=== PATIENT | male | born 1985 | race Caucasian/White ===

== ENCOUNTER → 2017-09-04 | Outpatient (CLI) | payer OTHER ==
[~2017-09-04] MED LIST: AZIT250 PO; Augmentin 875-1 EACH PO; CEPH500 PO; CRUTCH4 USE; DIPATR PO; DOXY100 PO; FISH1000; GINKO BILOBA; HYDACE5 PO; HYDGUAL120 PO; IBUP200; IBUP400 PO; IBUP800 PO; MULVITA; NAPR500 PO; NAPR550 PO; OXYASA5T PO; OXYC15ER PO; PANT40 PO; PENVK250 PO; PENVK500 PO; PROACE100 PO; RXHYDACE PO; RXNAPNA550 PO
== END | disposition home or self-care (01) ==
LOC: LAB SHORT 17:14 → LAB EV 17:14
DX: L08.9 Local infection of the skin and subcutaneous tissue, unspecified (principal)
CPT/HCPCS: 87070; 87075; 87205

== ENCOUNTER 2019-07-24 16:56 | Emergency (ER) | payer OTHER ==
[~2019-07-24] VITALS: Ht 172.7 cm; Wt 72.6 kg
[2019-07-24] MEDS ORDERED: PENVK500 PO ×2 (17:29→17:38)
== END 2019-07-24 18:07 | disposition home or self-care (01) ==
LOC: ER 16:56
DX: K04.7 Periapical abscess without sinus (principal); F17.210 Nicotine dependence, cigarettes, uncomplicated
CPT/HCPCS: 99282

== ENCOUNTER 2020-01-08 23:07 | Emergency (ER) | payer OTHER ==
[~2020-01-08] VITALS: Ht 172.7 cm; Wt 70.8 kg
[2020-01-09] MEDS ORDERED: IBUP800 PO (08:20)
[2020-01-09] MEDS ORDERED: Amoxicillin500 MG PO (08:20)
== END 2020-01-09 03:30 | disposition left against medical advice (07) ==
LOC: ER 23:07
DX: Z53.21 Procedure and treatment not carried out due to patient leaving prior to being seen by health care provider (principal)

== ENCOUNTER 2020-01-09 07:08 | Emergency (ER) | payer OTHER ==
[~2020-01-09] VITALS: Ht 172.7 cm; Wt 70.8 kg
[2020-01-09] MEDS ORDERED: Amoxicillin500 MG PO (08:20)
[2020-01-09] MEDS ORDERED: IBUP800 PO (08:20)
== END 2020-01-09 08:28 | disposition home or self-care (01) ==
LOC: ER 07:08
DX: K02.9 Dental caries, unspecified (principal); F17.210 Nicotine dependence, cigarettes, uncomplicated
CPT/HCPCS: 99282

== ENCOUNTER 2020-06-13 08:02 | Inpatient (IN) | payer OTHER ==
[~2020-06-13] VITALS: Ht 175.3 cm; Wt 78.5 kg
[~2020-06-13 08:02] MED LIST changes: +Amoxicillin500 MG PO
[2020-06-13 11:23] LABS: Body Fluid Crystals NEG (NEGATIVE)
[2020-06-13 12:09] LABS: WBC Count, Synovial Fluid 25035 /mm3 (0-180)
[2020-06-13 12:33] LABS: RBC Count, Synovial Fluid 19 /mm3 (0-0)
[2020-06-13 12:37] LABS: Appearance, Synovial Fluid Cloudy (Clear); Color, Synovial Fluid Pale Yellow (None-P Yel); Lymphs, Synovial Fluid 1 % (0-15); Monocytes/Macrophages, Synovia 15 % (0-65); Neutrophils, Synovial Fluid 84 % (0-24)
[2020-06-13 13:54] LABS: BASOPHILS ABSOLUTE AUTO 0.04 K/mm3 (0.00-0.23); BASOPHILS PERCENT AUTO 0 % (0-2); EOSINOPHILS ABSOLUTE AUTO 0.12 K/mm3 (0.00-0.68); EOSINOPHILS PERCENT AUTO 1 % (0-6); Hematocrit 43.7 % (37.0-53.0); Hemoglobin 14.6 g/dL (13.5-17.5); IMMATURE GRAN ABSOLUTE AUTO 0.05 K/mm3 (0.00-0.10); IMMATURE GRAN PERCENT AUTO 0 % (0-1); LYMPHOCYTES PERCENT AUTO 20 % (21-46); MONOCYTES ABSOLUTE AUTO 1.04 K/mm3 (0.16-1.47); MONOCYTES PERCENT AUTO 7 % (4-13); Mean Corpuscular HGB 30.6 pg (26.0-34.0); Mean Corpuscular HGB Conc 33.4 g/dL (31.5-36.5); Mean Corpuscular Volume 92 fL (80-100); Mean Platelet Volume 10.8 fL (9.1-12.4); NEUTROPHILS ABSOLUTE AUTO 10.01 K/mm3 (1.96-9.15); NEUTROPHILS PERCENT AUTO 71 % (41-73); Platelet Count 294 K/mm3 (150-400); RDW Coefficient Variation 13.9 % (11.7-14.2); RDW Standard Deviation 47.6 fL (35.1-46.3); Red Blood Cell Count 4.77 M/mm3 (4.30-5.90); White Blood Cell Count 14.06 K/mm3 (4.00-11.30)
[2020-06-13 14:05] LABS: Alanine Aminotransfer (ALT/SGP 27 U/L (12-78); Albumin, Blood 3.8 g/dL (3.4-5.0); Albumin/Globulin Ratio 1.1 (0.8-1.8); Alk Phos 60 U/L (50-136); Anion Gap 6 mmol/L (6-16); Aspartate Aminotrans (AST/SGOT 16 U/L (12-37); Bilirubin, Total 0.4 mg/dL (0.1-1.0); Blood Urea Nitrogen 9 mg/dL (8-24); CO2, Blood 29 mmol/L (21-32); Calcium, Blood 8.8 mg/dL (8.5-10.1); Chloride, Blood 106 mmol/L (98-108); Creatinine, Blood 0.82 mg/dL (0.60-1.20); Globulin, Blood 3.4 g/dL (2.2-4.0); Glomerular Filtration Rate >60 (60-); Glucose, Blood 108 mg/dL (70-99); Potassium, Blood 3.7 mmol/L (3.5-5.5); Sodium, Blood 141 mmol/L (136-145); Total Protein, Blood 7.2 g/dL (6.4-8.2)
[2020-06-13 14:29] LABS: Influenza A, PCR NEGATIVE (NEGATIVE); Influenza B, PCR NEGATIVE (NEGATIVE); Resp Syncytial Virus, PCR NEGATIVE (NEGATIVE); SARS-Cov-2 (COVID-19) PCR, MMC NEGATIVE (NEGATIVE)
--- NOTE | 2020-06-13 16:45 | NUR ---
Patient up to Ambulate independently. Gait steady. History, Chart, Medications and Allergies reviewed before start of procedure.Lungs clear T/O to Auscultation. Patient confirms NPO status and agrees with scheduled surgery. GAVE 10MG REGLAN AND 2MG VERSED PER ORDER. BELONINGS IN ROOM 230
--- NOTE | 2020-06-13 18:41 | NUR ---
PT CAME TO THE FLOOR FROM ER AT 1600 AND OFF TO O.R. AT 1615. WILL REPORT TO ONCOMING MARIEL BYRNES.
--- NOTE | 2020-06-13 19:37 | NUR ---
PT TO ROOM 230 FROM [facility] AROUND 1900. A/O X4, REPORTS PAIN MANAGED WELL. IMMOBILIZER, KOLE, AND HEMOVAC IN PLACE WNL. DR. SOARES TO SEE PT AND DISCUSS WEIGHT BEARING STATUS. PT ATE FOOD, NO NAUSEA, TOOK PAIN PILL, AND GOT DRESSED. PT OUT TO SEE SIGNIFICANT OTHER AT 1940 USING WHEELCHAIR.
--- NOTE | 2020-06-13 20:29 | NUR ---
PATIENT STILL OUT OF ROOM
[2020-06-14 05:55] LABS: BASOPHILS ABSOLUTE AUTO 0.01 K/mm3 (0.00-0.23); BASOPHILS PERCENT AUTO 0 % (0-2); EOSINOPHILS ABSOLUTE AUTO 0.01 K/mm3 (0.00-0.68); EOSINOPHILS PERCENT AUTO 0 % (0-6); Hematocrit 40.7 % (37.0-53.0); Hemoglobin 13.6 g/dL (13.5-17.5); IMMATURE GRAN ABSOLUTE AUTO 0.04 K/mm3 (0.00-0.10); IMMATURE GRAN PERCENT AUTO 0 % (0-1); LYMPHOCYTES ABSOLUTE AUTO 1.59 K/mm3 (0.84-5.20); LYMPHOCYTES PERCENT AUTO 12 % (21-46); MONOCYTES ABSOLUTE AUTO 0.76 K/mm3 (0.16-1.47); MONOCYTES PERCENT AUTO 6 % (4-13); Mean Corpuscular HGB 30.5 pg (26.0-34.0); Mean Corpuscular HGB Conc 33.4 g/dL (31.5-36.5); Mean Corpuscular Volume 91 fL (80-100); Mean Platelet Volume 10.8 fL (9.1-12.4); NEUTROPHILS PERCENT AUTO 82 % (41-73); Platelet Count 279 K/mm3 (150-400); RDW Coefficient Variation 13.6 % (11.7-14.2); RDW Standard Deviation 46.5 fL (35.1-46.3); Red Blood Cell Count 4.46 M/mm3 (4.30-5.90); White Blood Cell Count 13.41 K/mm3 (4.00-11.30)
[2020-06-14 06:49] LABS: Alanine Aminotransfer (ALT/SGP 28 U/L (12-78); Albumin, Blood 3.6 g/dL (3.4-5.0); Albumin/Globulin Ratio 1.1 (0.8-1.8); Alk Phos 55 U/L (50-136); Anion Gap 6 mmol/L (6-16); Aspartate Aminotrans (AST/SGOT 15 U/L (12-37); Bilirubin, Total 0.3 mg/dL (0.1-1.0); Blood Urea Nitrogen 14 mg/dL (8-24); Bun/Creatinine Ratio 15.9 (12.0-20.0); CO2, Blood 30 mmol/L (21-32); Calcium, Blood 8.8 mg/dL (8.5-10.1); Chloride, Blood 105 mmol/L (98-108); Creatinine, Blood 0.88 mg/dL (0.60-1.20); Globulin, Blood 3.4 g/dL (2.2-4.0); Glomerular Filtration Rate >60 (60-); Glucose, Blood 119 mg/dL (70-99); Potassium, Blood 4.2 mmol/L (3.5-5.5); Sodium, Blood 141 mmol/L (136-145)
--- NOTE | 2020-06-14 07:26 | NUR ---
out of room
--- NOTE | 2020-06-14 08:43 | NUR ---
CARE COORDINATION REFERRAL - ADMIT: 06/13/20 DISCHARGE: DX: LEFT KNEE SEPTIC ARTHRITIS CC: KWILCOX MATHIEU CALL: RESIDENCE: HOME CAREGIVER: SELF, LAURA SMYTH, SPOUSE / PARTNER, DX: KNEE PAIN DME: NONE CCM: NONE HOME HEALTH: NONE SUMMARY: ADMIT: 06/13/20 06/14/20- PT HAD I&D OF KNEE BY DR. SOARES ON 06/13/20.
--- NOTE | 2020-06-14 11:01 | NUR ---
PT BACK TO ROOM
--- NOTE | 2020-06-14 11:13 | NUR ---
PATIENT RETURNED TO ROOM AFTER BEING GONE FOR PROLONGED PERIOD OF TIME. DURING THAT TIME RECEIVED CALL FROM STAFF MEMBER WHO SAW PATIENT PAST [facility]. ADVISED PATIENT THAT DUE TO COVID AND NEED TO BE ABLE TO PROVIDE HIM TIMELY CARE, THAT WE COULD NOT ALLOW PATIENT TO LEAVE FACILITY. PATIENT VERBALIZED UNDERSTANDING THEN CAME OUT INTO HALLWAY STATING HE IS READY TO DISCHARGE. CALL TO DR SOARES & DR CHANDRA.
[2020-06-14] MEDS ORDERED: CEFIXIME400 MG PO ×2 (11:53)
[2020-06-14] MEDS ORDERED: HYDR1TAB94 PO ×2 (11:53)
[2020-06-14] MEDS ORDERED: DOXY100 PO ×2 (11:54)
--- NOTE | 2020-06-14 12:18 | NUR ---
DISCHARGED PT STATED DID NOT WANT TO WAIT FOR CRUTCHES. NOTIFIED KRISTI GENAO/WILLA DC INTERNAL REVENUE SERVICE AGENT. DC'D IV, CATHETER INTACT. REVIEWED DC INSTRUCTIONS; PT VERBALIZED UNDERSTANDING. CALLED ANTIBIOTICS INTO [facility] AND PROVIDED [facility]CRIPTION W/DC PAPERWORK. DC'D TELE AND RETURNED.
--- NOTE | 2020-06-14 14:02 | NUR ---
PT LEFT UNIT BY AMBULATION AT APPROXIMATELY 1235. REFUSED BEING WHEELED OUT IN WC. HAD POSSESSIONS AND DC PAPERWORK IN HAND.
--- NOTE | 2020-06-14 15:45 | NUR ---
06/14/20- PT HAD I&D OF KNEE BY DR. SOARES ON 06/13/20. PT DISCHARGED TODAY HOME. HIS FRIEND WILL BE TAKING HIM HOME. PT KEPT LEAVING THE CAMPUS AND NURSING STAFF HAD TO DISCUSS THIS WITH HIM. PT BECAME FRUSTRATED, SO HE SAT ON THE FLOOR OF HIS ROOM WITH THE DOOR SHUT. DR. CHANDRA CAME AND SPOKE WITH THE PT AND DECIDED TO D/C PT. MET WITH PT. AND WENT OF MATHIEU LETTER. PT DECLINED ANY DME SUCH WALKER OR CRUTCHES. HE JUST WANTED TO BE D/C. NURSE CALLED IN MEDICATIONS TO [facility]. PT REQUESTED THAT HIS FOLLOW UP APPT BE WITH ROBBIE JONES. -VENUS
[2020-06-15 01:09] LABS: CHLAMYDIA TRACHOMATIS, NAA Negative (Negative)
== END 2020-06-14 12:30 | disposition home or self-care (01) | DRG 487 ==
LOC: ER 08:02 → SURS 14:01
PROVIDERS: Emergency Medicine; Orthopaedic Surgery; ADMIT Family Medicine
PROC: 0SBD4ZZ Excision of Left Knee Joint, Percutaneous Endoscopic Approach (ICD-10-PCS; 2020-06-13)
PROC: 0SBD4ZZ Excision of Left Knee Joint, Percutaneous Endoscopic Approach (ICD-10-PCS; 2020-06-13)
PROC: 0S9C3ZZ Drainage of Right Knee Joint, Percutaneous Approach (ICD-10-PCS; principal; 2020-06-13 16:30)
DX: M00.9 Pyogenic arthritis, unspecified (principal); Z98.890 Other specified postprocedural states; Z87.891 Personal history of nicotine dependence; Z20.822 Contact with and (suspected) exposure to COVID-19
CPT/HCPCS: 0241U; 20611; 36415; 73560-LT; 80053; 85025; 85651; 86140; 87070; 87075; 87205; 87491; 87591; 89051; 89060; 96365-59; 96375-59; 99285-25; A9270; J0330; J0690; J0696; J1100; J1885; J2250; J2405; J2704; J2765; J3010; J3370; J3480; J7042; J7050; J7120

== ENCOUNTER 2020-06-15 15:16 | Inpatient (IN) | payer OTHER ==
[~2020-06-15] VITALS: Ht 175.3 cm; Wt 78.7 kg
[~2020-06-15 15:16] MED LIST changes: +CEFIXIME400 MG PO; +HYDR1TAB94 PO
[2020-06-15 15:36] LABS: BASOPHILS ABSOLUTE AUTO 0.06 K/mm3 (0.00-0.23); BASOPHILS PERCENT AUTO 1 % (0-2); EOSINOPHILS ABSOLUTE AUTO 0.17 K/mm3 (0.00-0.68); EOSINOPHILS PERCENT AUTO 2 % (0-6); Hematocrit 41.9 % (37.0-53.0); Hemoglobin 14.1 g/dL (13.5-17.5); IMMATURE GRAN ABSOLUTE AUTO 0.04 K/mm3 (0.00-0.10); IMMATURE GRAN PERCENT AUTO 0 % (0-1); LYMPHOCYTES ABSOLUTE AUTO 2.61 K/mm3 (0.84-5.20); LYMPHOCYTES PERCENT AUTO 28 % (21-46); MONOCYTES ABSOLUTE AUTO 0.61 K/mm3 (0.16-1.47); MONOCYTES PERCENT AUTO 6 % (4-13); Mean Corpuscular HGB 31.3 pg (26.0-34.0); Mean Corpuscular HGB Conc 33.7 g/dL (31.5-36.5); Mean Corpuscular Volume 93 fL (80-100); Mean Platelet Volume 10.2 fL (9.1-12.4); NEUTROPHILS ABSOLUTE AUTO 5.98 K/mm3 (1.96-9.15); NEUTROPHILS PERCENT AUTO 63 % (41-73); Platelet Count 298 K/mm3 (150-400); RDW Coefficient Variation 13.8 % (11.7-14.2); RDW Standard Deviation 47.4 fL (35.1-46.3); Red Blood Cell Count 4.51 M/mm3 (4.30-5.90); White Blood Cell Count 9.47 K/mm3 (4.00-11.30)
[2020-06-15 16:01] LABS: Alanine Aminotransfer (ALT/SGP 29 U/L (12-78); Albumin, Blood 3.6 g/dL (3.4-5.0); Albumin/Globulin Ratio 1.1 (0.8-1.8); Alk Phos 52 U/L (50-136); Anion Gap 5 mmol/L (6-16); Aspartate Aminotrans (AST/SGOT 18 U/L (12-37); Bilirubin, Total 0.5 mg/dL (0.1-1.0); Blood Urea Nitrogen 14 mg/dL (8-24); Bun/Creatinine Ratio 15.9 (12.0-20.0); CO2, Blood 30 mmol/L (21-32); Calcium, Blood 8.7 mg/dL (8.5-10.1); Chloride, Blood 106 mmol/L (98-108); Creatinine, Blood 0.88 mg/dL (0.60-1.20); Globulin, Blood 3.3 g/dL (2.2-4.0); Glomerular Filtration Rate >60 (60-); Glucose, Blood 121 mg/dL (70-99); Potassium, Blood 3.9 mmol/L (3.5-5.5); Sodium, Blood 141 mmol/L (136-145); Total Protein, Blood 6.9 g/dL (6.4-8.2)
--- NOTE | 2020-06-15 18:54 | NUR ---
ED ADMIT: REPORT FROM JERMAIN IN ED. PT ARRIVED TO ROOM VIA W/V @ 1827. PT A/O X4, ABLE TO TRANSFER SELF INDEPENDENTLY. LEFT KNEE WITH IMMOBILIZER AND JOHN DRAIN WITH RED DRAINAGE NOTED. STATES NO PAIN AT THIS TIME. VSS. PT WANTS TO SHOWER TONIGHT. WILL REPORT TO ONCOMING RN.
--- NOTE | 2020-06-16 04:03 | NUR ---
SHIFT SUMMARY ADMITTED FOR SEPTIC ARTHRITIS. FULL CODE. PLAN IS FOR IV ANTIBIOTICS. PT IS ON A REGULAR DIET, INDEPENDENT IN ROOM, A&O X4. JOHN DRAIN & IMMOBILIZER IN PLACE ON LEFT KNEE. PT DENIES PAIN. HE IS COOPERATIVE WITH CARE. DR SOARES IS CONSULT. NO NEW CONCERNS THIS SHIFT.
--- NOTE | 2020-06-16 15:29 | NUR ---
START OF SHIFT PT BECAME UPSET AFTER ASKING TO HAVE A WHEELCHAIR AND GO DOWN TO [employer]. THIS FEED IN WORKER HAD TO TELL PT THIS IS NOT SOMETHING WE LET PTs DO AT THIS TIME DUE TO COVID AND THE STRONGER RULES IN PLACE. THIS FEED IN WORKER DID CHECK WITH THE CHARGE TO MAKE SURE THIS WAS THE RULE AND IT WAS VERIFIED PT WOULD NOT BE ABLE TO LEAVE FLOOR. PT WOULD NOT LET THIS FEED IN WORKER TRY TO EXPLAIN OR TALK WITH HIM STATING THIS FEED IN WORKER WAS BEING CONFRONTATIONAL. PT STATED HE NEEDED TO RECORD THE CONVERSATION AND THIS FEED IN WORKER CONSENTED JUST TRYING TO FIND A WAY TO MAKE PT HAPPY. PT STATED HE WOULD NOT EAT HOSPITAL FOOD AND ASKED WHAT HE WAS TO DO. HE WAS TOLD IF HE HAD A VISITOR THEY COULD BRING HIM FOOD. THIS FEED IN WORKER JUST TRIED TO LISTEN AND NOT ADD TO PT'S AGITATION. PT THEN SPOKE WITH DR SEGUNDO AND PT ADVOCATE MUCH OF HIS DISTRESS SOUNDED LIKE AN ISSUE FROM THE PREVIOUS DAY. AFTER THIS PT WAS MUCH HAPPIER AND HAS BEEN GOOD TO WORK WITH. WILL CONTINUE TO MONITOR.
--- NOTE | 2020-06-16 15:43 | NUR ---
ADMIT: 06/15/20 DISCHARGE: DX: Septic arthritis CC: kwilcox MATHIEU CALL: RESIDENCE: home CAREGIVER: [place], Spouse / Partner, DX: septic knee DME: none CCM: none HOME HEALTH: none SUMMARY: Admit: 06/16/20 06/16/20- pt is back with infected knee. Dr. Dooley feels that pt will be here through the weekend for IV antibiotics. Dr. Pisano is also seeing pt and Dr. Dooley will follow his recommendations for treatment. -angelinaw
--- NOTE | 2020-06-16 16:26 | NUR ---
TRANSFERING CARE TO FITZ SYKES. PT AOX4 AND COOPERATIVE OF CARE. PT INDEPENDENT IN ROOM. PT REFUSED PAIN MEDICATION AT THIS TIME. CALL LIGHT WITHIN REACH.
[2020-06-16 22:34] LABS: Vancomycin, Trough 15.9 ug/mL (5.0-10.0)
--- NOTE | 2020-06-17 04:34 | NUR ---
STEERER SUMMARY A/OX4, IND IN ROOM. PLEASANT AND COOPERATIVE WITH CARE. MEDICATED FOR PAIN X1. IMMOBOLIZER IN PLACE TO L. KNEE. 15ML OF OUTPUT FROM HEMOVAC THIS SHIFT. VSS, NO ACUTE CHANGES AT THIS TIME. BED IN LOWEST POSITION WITH CALL LIGHT IN REACH. WILL CONTINUE TO MONITOR AND REPORT TO ONCOMING RN.
--- NOTE | 2020-06-17 19:04 | NUR ---
SHIFT SUMMARY PATIENT ALERT, ORIENTED, INDEPENDENT IN THE ROOM THIS SHIFT. PATIENT UP WALKING IN THE [place]. PATIENT COOPERATIVE WITH CARE. VISITOR IN THE ROOM THIS AFTERNOON. PATIENT WITHOUT ADDITIONAL NEEDS THROUGHOUT THIS SHIFT. PATIENT REMAINS ON IV ANTIBIOTICS. PATIENT MEDICATED FOR PAIN 1X THIS AM, STATES PAIN REDUCES WITH ACTIVITY.
--- NOTE | 2020-06-18 03:43 | NUR ---
STORE GROCERY MERCHANDISER SUMMARY A/OX4, INDEPENDENT IN ROOM. PLEASANT AND COOPERATIVE WITH CARE. DRESSING TO L. KNEE C/D/I, IMMOBOLIZER IN PLACE. DENIED PAIN THIS SHIFT. VSS, NO ACUTE CHANGES AT THIS TIME. BED IN LOWEST POSITION WITH CALL LIGHT IN REACH. WILL CONTINUE TO MONITOR AND REPORT TO ONCOMING RN.
--- NOTE | 2020-06-18 15:21 | NUR ---
PATIENT IS ALERT AND ORIENTED; INDEPENDANT. VITALS STABLE. COOPERATIVE WITH STAFF AND PROVIDED CARE. C/O PAIN ONCE THIS MORNING WITH EFFECTIVE RESULTS FROM REQUESTED PAIN MEDICATION. PATIENT CONTINUES ON IV ABX WITHOUT S/SX OF ADVERSE REACTIONS NOTED OR REPORTED. PICC OR MIDLINE PLACEMENT PENDING WITH PLANS FOR DISCHARGE HOME TOMORROW AND DAILY IV ABX AT THE [facility] FOR 12 DAYS. PATIENT IS RESTING IN ROOM AT THIS TIME. CALL LIGHT WITHIN REACH.
--- NOTE | 2020-06-19 04:39 | NUR ---
SHIFT SUMMARY NO ACUTE CHANGES TO REPORT THIS SHIFT. PT HAS RESTED MOST OF THE NIGHT AND HAS DENIED NEEDS. INDEPENDENT IN THE ROOM. MEDICATED X1 FOR L KNEE PAIN. LEFT KNEE REMAINS IN CAST, DRESSING INTACT. POWERGLIDE PLACED THIS SHIFT FOR OUTPAITENT ANTIBIOTICS UPON DC. PT TO DC TODAY. RESTFUL NIGHT. BED IN LOWEST POSITION, CALL LIGHT WITHIN REACH.
[2020-06-19] MEDS ORDERED: ACET325 PO (11:41)
[2020-06-19] MEDS ORDERED: CEFTRIAXONE IV (11:52)
[2020-06-19] MEDS ORDERED: PROBIOTIC1 EA13 PO (11:54)
--- NOTE | 2020-06-19 12:22 | NUR ---
06/19/20- MET WITH PT AND REVIEWED MATHIEU LETTER WITH HIM AGAIN. HE DOES HAVE A RIDE HOME. PT STATES THAT ONCE HE IS D/C HE WILL BE GOING TO DR. SOARES'S OFFICE TO HAVE HIS KNEE CHECKED. PT WILL NEED TO IV ANTIBOTICS DAILY FOR THE NEXT 11 DAYS. THIS WILL BE SCHEDULED PRIOR TO PT LEAVING AT THE [facility]. PT ACKNOWLEDGES THAT HE NEEDS TO DO THIS AND THAT HE WILL NEED TO MAKE F/U APPT WITH PCP. -VENUS
--- NOTE | 2020-06-19 12:51 | NUR ---
DISCHARGE: staff escorted pt in wc to family car, REVIEWED: home medications, infusion appointments, follow up appointments and referrals, wound care, REMOVED: iv, left powerglide for infusion, very pleased with wound progression and recommended pt changing dressing at one once per day
== END 2020-06-19 13:01 | disposition home or self-care (01) | DRG 550 ==
LOC: ER 15:16 → MEDS 15:17 → ER 18:27 → MEDS 18:39 → ER 18:39 → MEDS 18:39 → ENPENDDIS 06-19 11:02 → MEDS 06-19 13:01
PROVIDERS: Emergency Medicine; Pharmacist; ADMIT Internal Medicine
DX: M00.9 Pyogenic arthritis, unspecified (principal); Z79.899 Other long term (current) drug therapy; Z98.890 Other specified postprocedural states; Z87.891 Personal history of nicotine dependence
CPT/HCPCS: 36415; 80053; 80202; 85025; 96365; 96372; 96375; 96376; 99284-25; A9270; C1751; G0378; J0696; J1644; J1650; J2543; J3370; J7050

== ENCOUNTER 2020-06-20 00:27 | Day surgery (SDC) | payer OTHER ==
[~2020-06-20 00:27] MED LIST changes: +ACET325 PO; +CEFTRIAXONE IV; +PROBIOTIC1 EA13 PO
== END 2020-06-20 11:43 | disposition home or self-care (01) ==
LOC: ATC 00:27
DX: M00.869 Arthritis due to other bacteria, unspecified knee (principal)
CPT/HCPCS: 96365; J0696

== ENCOUNTER 2020-06-21 00:35 | Day surgery (SDC) | payer OTHER | END 2020-06-21 11:43 | disposition home or self-care (01) | LOC: ATC 00:35 | DX: M00.862 Arthritis due to other bacteria, left knee (principal); F17.200 Nicotine dependence, unspecified, uncomplicated | CPT/HCPCS: 96365; J0696 ==

== ENCOUNTER 2020-06-22 00:14 | Day surgery (SDC) | payer OTHER | END 2020-06-22 11:30 | disposition home or self-care (01) | LOC: ATC 00:14 | DX: M00.862 Arthritis due to other bacteria, left knee (principal); Z79.899 Other long term (current) drug therapy | CPT/HCPCS: 96365; J0696 ==

== ENCOUNTER 2020-06-23 00:48 | Day surgery (SDC) | payer OTHER | END 2020-06-23 11:42 | disposition home or self-care (01) | LOC: ATC 00:48 | DX: M00.862 Arthritis due to other bacteria, left knee (principal); F17.200 Nicotine dependence, unspecified, uncomplicated; B96.89 Other specified bacterial agents as the cause of diseases classified elsewhere; Z79.899 Other long term (current) drug therapy | CPT/HCPCS: 96365; J0696 ==

== ENCOUNTER 2020-06-24 09:36 | Day surgery (SDC) | payer OTHER | END 2020-06-24 10:07 | disposition home or self-care (01) | LOC: ATC 09:36 | DX: M00.862 Arthritis due to other bacteria, left knee (principal); F17.200 Nicotine dependence, unspecified, uncomplicated | CPT/HCPCS: 96365; J0696 ==

== ENCOUNTER 2020-06-25 11:00 | Day surgery (SDC) | payer OTHER | END 2020-06-25 11:29 | disposition home or self-care (01) | LOC: ATC 11:00 | DX: M00.862 Arthritis due to other bacteria, left knee (principal); F17.200 Nicotine dependence, unspecified, uncomplicated | CPT/HCPCS: 96365; J0696 ==

== ENCOUNTER 2020-06-26 00:31 | Day surgery (SDC) | payer OTHER | END 2020-06-26 11:30 | disposition home or self-care (01) | LOC: ATC 00:31 | DX: M00.862 Arthritis due to other bacteria, left knee (principal) | CPT/HCPCS: 96365; J0696 ==

== ENCOUNTER 2020-06-27 00:37 | Day surgery (SDC) | payer OTHER | END 2020-06-27 11:45 | disposition home or self-care (01) | LOC: ATC 00:37 | DX: M00.862 Arthritis due to other bacteria, left knee (principal) | CPT/HCPCS: 96365; J0696 ==

== ENCOUNTER 2020-06-28 00:10 | Day surgery (SDC) | payer OTHER | END 2020-06-28 11:34 | disposition home or self-care (01) | LOC: ATC 00:10 | DX: M00.9 Pyogenic arthritis, unspecified (principal); F17.200 Nicotine dependence, unspecified, uncomplicated | CPT/HCPCS: 96365; J0696 ==

== ENCOUNTER 2020-06-29 00:05 | Day surgery (SDC) | payer OTHER | END 2020-06-29 11:37 | disposition home or self-care (01) | LOC: ATC 00:05 | DX: M00.862 Arthritis due to other bacteria, left knee (principal); F17.200 Nicotine dependence, unspecified, uncomplicated | CPT/HCPCS: 96365; J0696 ==

== ENCOUNTER 2020-06-30 01:09 | Day surgery (SDC) | payer OTHER | END 2020-06-30 11:36 | disposition home or self-care (01) | LOC: ATC 01:09 | DX: M00.862 Arthritis due to other bacteria, left knee (principal); F17.200 Nicotine dependence, unspecified, uncomplicated | CPT/HCPCS: 96365; J0696 ==

== ENCOUNTER 2024-01-25 19:01 | Emergency (ER) | payer OTHER ==
[~2024-01-25] VITALS: Ht 175.3 cm; Wt 74.8 kg
[~2024-01-25 19:01] MED LIST changes: +Amoxicillin875 MG PO
[2024-01-25 19:20] VITALS: BP 142/75
[2024-01-25] MEDS ORDERED: Amoxicillin/Clavulanate K 875 MG Tab PO ONE (21:15)
[2024-01-25] MEDS ORDERED: AMOCLA875 PO (21:15)
== END 2024-01-25 21:25 | disposition home or self-care (01) ==
LOC: ER 19:01
DX: K04.7 Periapical abscess without sinus (principal); K02.9 Dental caries, unspecified; I10 Essential (primary) hypertension; Z87.891 Personal history of nicotine dependence
CPT/HCPCS: 99283; A9270

== ENCOUNTER 2024-12-22 16:12 | Emergency (ER) | payer SELFPAY ==
[~2024-12-22] VITALS: Ht 175.3 cm; Wt 74.8 kg
[~2024-12-22 16:12] MED LIST changes: +AMOCLA875 PO
[2024-12-22 16:31] VITALS: BP 146/69
== END 2024-12-22 19:21 | disposition left against medical advice (07) ==
LOC: ER 16:12
DX: S62.617A Displaced fracture of proximal phalanx of left little finger, initial encounter for closed fracture (principal); X58.XXXA Exposure to other specified factors, initial encounter; Z79.899 Other long term (current) drug therapy; Z87.891 Personal history of nicotine dependence
CPT/HCPCS: 73130

== ENCOUNTER 2024-12-22 22:41 | Emergency (ER) | payer OTHER ==
[~2024-12-22] VITALS: Ht 175.3 cm; Wt 74.8 kg
[2024-12-22 22:49] VITALS: BP 138/66
== END 2024-12-23 01:12 | disposition home or self-care (01) ==
LOC: ER 22:41
DX: S62.617A Displaced fracture of proximal phalanx of left little finger, initial encounter for closed fracture (principal); Z79.2 Long term (current) use of antibiotics; Z87.891 Personal history of nicotine dependence; V87.8XXA Person injured in other specified noncollision transport accidents involving motor vehicle (traffic), initial encounter
CPT/HCPCS: 26725; 73140; 99283-25

== ENCOUNTER 2025-01-08 10:58 | Inpatient (IN) | payer MEDICAID ==
[~2025-01-08] VITALS: Ht 175.3 cm; Wt 72.9 kg
[2025-01-08 11:46] LABS: BASOPHILS ABSOLUTE AUTO 0.04 K/mm3 (0.00-0.23); BASOPHILS PERCENT AUTO 0 % (0-2); EOSINOPHILS ABSOLUTE AUTO 0.00 K/mm3 (0.00-0.68); EOSINOPHILS PERCENT AUTO 0 % (0-6); Hematocrit 42.6 % (37.0-53.0); Hemoglobin 15.3 g/dL (13.5-17.5); IMMATURE GRAN ABSOLUTE AUTO 0.08 K/mm3 (0.00-0.10); IMMATURE GRAN PERCENT AUTO 0 % (0-1); LYMPHOCYTES ABSOLUTE AUTO 2.46 K/mm3 (0.84-5.20); LYMPHOCYTES PERCENT AUTO 13 % (21-46); MONOCYTES ABSOLUTE AUTO 1.45 K/mm3 (0.16-1.47); MONOCYTES PERCENT AUTO 8 % (4-13); Mean Corpuscular HGB Conc 35.9 g/dL (31.5-36.5); Mean Corpuscular Volume 87 fL (80-100); NEUTROPHILS ABSOLUTE AUTO 15.01 K/mm3 (1.96-9.15); NEUTROPHILS PERCENT AUTO 79 % (41-73); NRBC ABSOLUTE 0.00 K/mm3 (0.00-0.02); NRBC Auto 0.0 /100 WBC (0.0-0.2); Platelet Count 305 K/mm3 (150-400); RDW Coefficient Variation 12.8 % (11.7-14.2); RDW Standard Deviation 40.2 fL (35.1-46.3)
[2025-01-08 11:59] LABS: Ethanol (Alcohol), Blood, Med <3 mg/dL; Salicylate <1.7 mg/dL (2.8-20.0)
[2025-01-08 12:02] LABS: Acetaminophen, Random <2.0 ug/mL (10.0-30.0); Alanine Aminotransfer (ALT/SGP 63 U/L (12-78); Albumin, Blood 4.8 g/dL (3.4-5.0); Albumin/Globulin Ratio 1.4 (0.8-1.8); Anion Gap 20 mmol/L (3-11); Aspartate Aminotrans (AST/SGOT 183 U/L (12-37); Bilirubin, Total 1.5 mg/dL (0.1-1.0); Blood Urea Nitrogen 49 mg/dL (8-24); CO2, Blood 17 mmol/L (21-32); Calcium, Blood 9.1 mg/dL (8.5-10.1); Chloride, Blood 98 mmol/L (98-108); Creatinine, Blood 1.44 mg/dL (0.60-1.20); Globulin, Blood 3.5 g/dL (2.2-4.0); Glucose, Blood 97 mg/dL (70-99); Potassium, Blood 3.5 mmol/L (3.5-5.5); Sodium, Blood 131 mmol/L (136-145); Total Protein, Blood 8.3 g/dL (6.4-8.2)
[2025-01-08 14:16] LABS: Source, Urine Clean Catch
[2025-01-08 14:18] LABS: Bilirubin, Urine Neg (Neg); Color, Urine Yellow (P-Yellow); Glucose Qualitative, Urine Neg (Neg); Ketones, Urine 4+ (Neg); Leukocyte Esterase, Urine Neg (Neg); Protein, Urine 2+ (Neg); Specific Gravity, Urine 1.030 (1.003-1.022); Urobilinogen, Urine NORM (Normal)
[2025-01-08] MEDS ORDERED: NS 1,000 ML IV SCH (14:20)
[2025-01-08 14:26] LABS: White Blood Cells, Urine 0-2 /hpf (0-5)
[2025-01-08 14:29] LABS: U Amphetamine Screen DETECTED; U Barbituate Screen Not Detected; U Benzodiazapine Screen Not Detected; U Buprenorphine Screen Not Detected; U Cannabinoids Screen DETECTED; U Cocaine Screen Not Detected; U Methadone Screen Not Detected; U Methamphetamine Screen DETECTED; U Opiates Screen Not Detected; U Oxycodone Screen Not Detected; U Phencyclidine Screen Not Detected
[2025-01-08] MEDS ORDERED: FLU VACC TS2025-26(6MOS UP)/PF 45 MCG/0.5 ML SYRINGE IM SCH (17:05)
[2025-01-08] MEDS ORDERED: LORazepam 2 MG/ML 1ML Injection IV PRN (18:00)
[2025-01-08 18:41] VITALS: BP 109/88
--- NOTE | 2025-01-08 19:09 | NUR ---
ADMIT PT ADMITTED FROM ER WITH TARYN AT 1838, TELE PLACED, LR BEGAN AT 100. PT REFUSES FLU VACCINE. PT ORIENTED TO ROOM AND CALL LIGHT. COOPERATIVE WITH CARE AT THIS TIME. REPORT GIVEN TO MARIEL BYRNES.
[2025-01-09] VITALS: BP 114/71
[2025-01-09 05:33] LABS: BASOPHILS ABSOLUTE AUTO 0.03 K/mm3 (0.00-0.23); BASOPHILS PERCENT AUTO 1 % (0-2); EOSINOPHILS ABSOLUTE AUTO 0.22 K/mm3 (0.00-0.68); EOSINOPHILS PERCENT AUTO 4 % (0-6); Hematocrit 38.2 % (37.0-53.0); Hemoglobin 13.5 g/dL (13.5-17.5); IMMATURE GRAN ABSOLUTE AUTO 0.02 K/mm3 (0.00-0.10); IMMATURE GRAN PERCENT AUTO 0 % (0-1); LYMPHOCYTES ABSOLUTE AUTO 2.50 K/mm3 (0.84-5.20); LYMPHOCYTES PERCENT AUTO 40 % (21-46); MONOCYTES ABSOLUTE AUTO 0.67 K/mm3 (0.16-1.47); MONOCYTES PERCENT AUTO 11 % (4-13); Mean Corpuscular HGB Conc 35.3 g/dL (31.5-36.5); Mean Corpuscular Volume 90 fL (80-100); NEUTROPHILS ABSOLUTE AUTO 2.85 K/mm3 (1.96-9.15); NEUTROPHILS PERCENT AUTO 45 % (41-73); NRBC ABSOLUTE 0.00 K/mm3 (0.00-0.02); NRBC Auto 0.0 /100 WBC (0.0-0.2); Platelet Count 226 K/mm3 (150-400); RDW Coefficient Variation 13.0 % (11.7-14.2); RDW Standard Deviation 42.8 fL (35.1-46.3)
[2025-01-09 05:34] VITALS: BP 96/55
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
[2025-01-09 06:00] LABS: Anion Gap 9.0 mmol/L (3-11); Blood Urea Nitrogen 29.0 mg/dL (8-24); CO2, Blood 26.0 mmol/L (21-32); Calcium, Blood 8.6 mg/dL (8.5-10.1); Chloride, Blood 105.0 mmol/L (98-108); Creatinine, Blood 0.89 mg/dL (0.60-1.20); Glucose, Blood 130.0 mg/dL (70-99); Potassium, Blood 3.7 mmol/L (3.5-5.5); Sodium, Blood 136.0 mmol/L (136-145)
[2025-01-09 08:58] VITALS: BP 111/69
[2025-01-09] MEDS ORDERED: Enoxaparin 40 MG/0.4 ML SYR SC SCH (09:00)
[2025-01-09 15:11] VITALS: BP 109/73
--- NOTE | 2025-01-09 17:08 | NUR ---
PATIENT SLEPT ALL OF THIS SHIFT. AROUSED EASILY FOR MEALS AND TREATMENT BUT SLEPT OTHERWISE. CALL LIGHT WITHIN REACH.
[2025-01-09 19:45] VITALS: BP 115/64
[2025-01-10 01:01] VITALS: BP 109/71
[2025-01-10 04:55] VITALS: BP 112/76
--- NOTE | 2025-01-10 06:04 | NUR ---
JAVA GROOVY DEVELOPER SUMMARY PT A&OX4, VSS. NO ACUTE CHANGES THIS SHIFT. HAS BEEN ASLEEP FOR MOST OF THE SHIFT. CHEST RISE/RESPIRATIONS NOTED. AWAKENS EASILY FOR ANY MEDICATIONS, ASSESSMENTS, OR VITAL SIGNS. REMAINS ON TELE. SINUS EL AT 56. LR CONTINUES TO RUN AT 100. BED RAILS UP X 2, BED IN LOWEST POSITION, BED WHEELS LOCKED, PERSONAL BELONGINGS AND CALL LIGHT WITHIN REACH FOR SAFETY.
[2025-01-10 06:07] LABS: Anion Gap 6.0 mmol/L (3-11); Blood Urea Nitrogen 17.0 mg/dL (8-24); CO2, Blood 30.0 mmol/L (21-32); Calcium, Blood 8.5 mg/dL (8.5-10.1); Chloride, Blood 107.0 mmol/L (98-108); Creatinine, Blood 0.78 mg/dL (0.60-1.20); Glucose, Blood 110.0 mg/dL (70-99); Potassium, Blood 3.8 mmol/L (3.5-5.5); Sodium, Blood 139.0 mmol/L (136-145)
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
[2025-01-10 07:51] VITALS: BP 110/67
--- NOTE | 2025-01-10 13:21 | NUR ---
The patient is immediately expresses his frustration with his current life conditions. He states that he has a couple of people that are a good support to him and that his spiritual journey is very importatnt to him. He talks about denisha rosenberg angels, about how to pray and the mistakes that all religions make. He states that he does not believe in one religions but the beautiful message that most religions bring of compassion, giving to others and speaking and doing acts of human kindness. He finds a deree of anchored- ness from trusting in a supreme God. I see him becoming more relaxed and at peace as he shares his spiritual wisdom. I provided therapeutic listening, encouragement and spritual guidance. The patient responded well and showed signs of an elevated mood and increased hope.
[2025-01-10 13:49] VITALS: BP 124/72
--- NOTE | 2025-01-10 14:41 | NUR ---
CALLED DR MURILLO- PT HAD CP THIS MORNING. HE STATED HE WAS FEELING ANXIOUS, VSS, TELE SHOWED NO CHANGE. MEDICATED PT FOR ANXIETY WITH IV ATIVAN, PT STATED THE CHEST PAIN WAS IMPROVED IN A FEW MINUTES. THIS AFTERNOON THE PT WANTED TO GET UP AND TAKE A SHOWER, AFTER THE SHOWER THE PT HAND A C/O CHEST PAIN AGAIN, FEELING SHORT OF BREATH, HIS RESP RATE WAS ELEVATED. VSS, PT WAS PLACED BACK ON TELE, NO CHANGE ON TELE. MEDICATED FOR ANXIETY, AGAIN PT STATES RELIEF WITHIN MINUTES, THIS TIME THE PT ALSO NOTED HIS FACE WAS GETTING TINGLY PRIOR TO MEDICATION. AFTER MED, PT STATES HE FEELS MUCH BETTER. CALLED DR MURILLO HE IS AWARE OF THE CP EPISODES, ACCOMPANIED WITH ANXIETY, RELIEVED WITH ANXIETY MEDS. ORDERS TO CTM LONG VS REMAIN STABLE
--- NOTE | 2025-01-10 18:45 | NUR ---
SHIFT SUMMARY- PT ALERT, ORIENTED AND INDEPENDENT IN THE ROOM. HE IS VERY EMOTIONAL, HE IS UPSET WITH HIMSELF FOR USING DRUGS AGAIN. HE HAS A BUS TICKET TO [place] ON FRIDAY HE IS VERY ANXIOUS ABOUT LEAVING THE HOSPITAL WITH NOWHERE TO STAY, STATING "I AM SCARED, I WILL GET SAD AND GO USE DRUGS AGAIN. THEN I'LL WIND UP RIGHT BACK HERE." PT HAS BEEN MEDICATED FOR ANXIETY TWICE THIS SHIFT, WITH GOOD EFFECT. HE HAD CP WITH THE ANXIETY THAT WAS COMPLETELY RELIEVED WITH ANXIETY MEDS. MD AWARE, PT IN BED, CALL LIGHT IN REACH NO S&S OF DISTRESS NOTED, HE IS TALKING TO FAMILY ON THE PHONE CURRENTLY.
[2025-01-10 19:29] VITALS: BP 125/76
--- NOTE | 2025-01-11 04:38 | NUR ---
SHIFT SUMMARY PATIENT ALERT AND ORIENTED X4. VSS. PATIENT RESTING COMFORTABLY THROUGHOUT THE NIGHT. PATIENT REQUESTED IV START IN R ARM DUE TO IV IN L AC OCCLUDING. PATIENT HAD SOME ANXIOUSNESS AND CHEST PAIN AT THE BEGINNING OF THIS SHIFT, ATIVAN EFFECTIVE FOR RELIEF. PATIENT INDEPENDENT IN ROOM. BED IN LOWEST POSITION FOR SAFETY AND CALL LIGHT WITHIN REACH.
[2025-01-11 05:32] VITALS: BP 117/75
[2025-01-11 06:32] LABS: Alanine Aminotransfer (ALT/SGP 46.0 U/L (12-78); Albumin, Blood 3.1 g/dL (3.4-5.0); Albumin/Globulin Ratio 1.1 (0.8-1.8); Anion Gap 5.0 mmol/L (3-11); Aspartate Aminotrans (AST/SGOT 59.0 U/L (12-37); Bilirubin, Total 0.2 mg/dL (0.1-1.0); Blood Urea Nitrogen 15.0 mg/dL (8-24); CO2, Blood 29.0 mmol/L (21-32); Calcium, Blood 8.4 mg/dL (8.5-10.1); Chloride, Blood 109.0 mmol/L (98-108); Creatinine, Blood 0.8 mg/dL (0.60-1.20); Globulin, Blood 2.7 g/dL (2.2-4.0); Glucose, Blood 111.0 mg/dL (70-99); Potassium, Blood 4.1 mmol/L (3.5-5.5); Sodium, Blood 139.0 mmol/L (136-145); Total Protein, Blood 5.8 g/dL (6.4-8.2)
[2025-01-11 07:28] VITALS: BP 122/83
--- NOTE | 2025-01-11 11:09 | NUR ---
DISCHARGE PT DISCHARGED HOME. NO NEW MEDICATIONS TO BE FAXED. EDUCATED PT RE NEED TO RETURN TO ER FOR ANY WORSENING SYMPTOMS. BILATERAL IV REMOVED AND SITES APPEAR WNL. PT REPORTS HAVING ALL BELONGINGS. TELE REMOVED PRIOR TO DC. RN ESCORTED PT TO MEDICAL INFORMATION OFFICE ON SECOND FLOOR. PT AMBULATED INDEPENDENLTY.
== END 2025-01-11 11:04 | disposition home or self-care (01) | DRG 558 ==
LOC: ER 10:58 → MEDS 10:59
PROVIDERS: Internal Medicine; Physician Assistant; ADMIT Family Medicine
DX: M62.82 Rhabdomyolysis (principal); N17.9 Acute kidney failure, unspecified; E87.20 Acidosis, unspecified; E87.1 Hypo-osmolality and hyponatremia; Z59.00 Homelessness unspecified; F41.9 Anxiety disorder, unspecified; D72.829 Elevated white blood cell count, unspecified; E86.0 Dehydration; F15.10 Other stimulant abuse, uncomplicated; F12.10 Cannabis abuse, uncomplicated; F10.10 Alcohol abuse, uncomplicated; Z71.51 Drug abuse counseling and surveillance of drug abuser; Z98.890 Other specified postprocedural states; Z87.891 Personal history of nicotine dependence
CPT/HCPCS: 36415; 74177; 80048; 80053; 80320; 81001; 82550; 83605; 84145; 85025; 93005; 93010; 96360-59; 96361; 96372; 99285-25; A9270; G0378; G0480; J1650; J2060; J7030; J7120; Q9967